=== PATIENT | male | born 1975 | race Caucasian/White ===

== ENCOUNTER 2020-09-09 12:34 | Emergency (ER) | payer OTHER ==
[~2020-09-09] VITALS: Ht 185.4 cm; Wt 100.0 kg
[2020-09-09 14:52] LABS: BASOPHILS % (AUTO) 1.2 % (0.0-2.0); EOSINOPHILS % (AUTO) 1.4 % (1.0-6.0); HEMOGLOBIN 13.2 g/dL (13.5-17.5); LYMPHOCYTES # (AUTO) 2.3 K/uL (1.0-4.8); LYMPHOCYTES % (AUTO) 32.4 % (22.0-44.0); MEAN CORPUSCULAR HEMOGLOBIN 31.4 pg (26.0-34.0); MEAN CORPUSCULAR VOLUME 92 fL (80-100); MONOCYTES # (AUTO) 0.6 K/uL (0.1-1.0); MONOCYTES % (AUTO) 8.2 % (2.0-9.0); NEUTROPHILS % (AUTO) 56.8 % (40.0-70.0); PLATELET COUNT (AUTO) 311 K/uL (150-450); RED BLOOD CELL COUNT(AUTO) 4.21 MIL/uL (4.50-5.90); RED CELL DISTRIBUTION WIDTH 15.2 % (11.5-14.5)
[2020-09-09 15:03] LABS: CALCIUM, TOTAL 7.9 mg/dL (8.8-10.5); CREATININE 1.71 mg/dL (0.60-1.30); POTASSIUM 3.6 mmol/L (3.5-5.1)
[2020-09-09 15:30] VITALS: BP 162/92
== END 2020-09-09 15:35 | disposition home or self-care (01) ==
LOC: EMS 12:37
DX: R60.0 Localized edema (principal); N28.9 Disorder of kidney and ureter, unspecified; R03.0 Elevated blood-pressure reading, without diagnosis of hypertension; F15.90 Other stimulant use, unspecified, uncomplicated
CPT/HCPCS: 99283

== ENCOUNTER 2020-09-11 12:05 | Emergency (ER) | payer OTHER ==
[~2020-09-11] VITALS: Ht 185.4 cm; Wt 100.0 kg
[2020-09-11 12:15] VITALS: BP 147/105
== END 2020-09-11 15:00 | disposition left against medical advice (07) ==
LOC: EMS 12:09
DX: M79.89 Other specified soft tissue disorders (principal); Z53.21 Procedure and treatment not carried out due to patient leaving prior to being seen by health care provider

== ENCOUNTER 2020-10-26 11:39 | Emergency (ER) | payer OTHER ==
[~2020-10-26] VITALS: Ht 185.4 cm; Wt 116.8 kg
[2020-10-26] MEDS ORDERED: HEART PO (11:44)
[2020-10-26] MEDS ORDERED: FURO40 PO (11:44)
[2020-10-26] MEDS ORDERED: LEVO75 PO (11:44)
[2020-10-26] MEDS ORDERED: HTN PO (11:44)
[2020-10-26] MEDS ORDERED: LOSA50TA37 PO (12:32)
[2020-10-26] MEDS ORDERED: MELA5TAB3 PO (12:32)
[2020-10-26] MEDS ORDERED: GABA-1181 PO (12:32)
[2020-10-26 12:50] LABS: EOSINOPHILS % (AUTO) 1.6 % (1.0-6.0); HEMATOCRIT 35.7 % (41-53); HEMOGLOBIN 12.1 g/dL (13.5-17.5); LYMPHOCYTES % (AUTO) 30.5 % (22.0-44.0); MEAN CORPUSCULAR HEMOGLOBIN 31.4 pg (26.0-34.0); MEAN CORPUSCULAR VOLUME 92 fL (80-100); MONOCYTES # (AUTO) 0.8 K/uL (0.1-1.0); MONOCYTES % (AUTO) 11.6 % (2.0-9.0); NEUTROPHILS # (AUTO) 3.6 K/uL (1.8-7.7); NEUTROPHILS % (AUTO) 54.3 % (40.0-70.0); PLATELET COUNT (AUTO) 289 K/uL (150-450); RED BLOOD CELL COUNT(AUTO) 3.87 MIL/uL (4.50-5.90); RED CELL DISTRIBUTION WIDTH 14.2 % (11.5-14.5)
[2020-10-26 13:03] LABS: CALCIUM, TOTAL 7.5 mg/dL (8.8-10.5); CREATININE 1.3 mg/dL (0.60-1.30); POTASSIUM 4.1 mmol/L (3.5-5.1)
[2020-10-26 13:07] LABS: ALBUMIN 4.1 g/dL (3.4-5.0); BILIRUBIN,TOTAL 0.5 mg/dL (0.1-1.0); TOTAL PROTEIN, SERUM 8.1 g/dL (6.4-8.2)
[2020-10-26 13:16] VITALS: BP 121/79
[2020-10-26] MEDS ORDERED: CALCIUM OYSTER SHELL 250 MG-VIT D3 125 UNITS TABLET PO ONE (14:00)
== END 2020-10-26 14:24 | disposition home or self-care (01) ==
LOC: EMS 11:45
DX: E83.51 Hypocalcemia (principal)
CPT/HCPCS: 99283